=== PATIENT | male | born 1995 | race Caucasian/White ===

== ENCOUNTER 2019-03-02 15:20 | Emergency (ER) | payer BC ==
[2019-03-02 15:44] VITALS: BP 162/95
--- NOTE | 2019-03-02 16:31 | UC ---
Psychiatric Complaint HPI - HPI Summary HPI Summary: 23yo WM h/o schizophrenia, ADD presents with anxiety due to running out of psych meds x months. States his main psych provider OD'd many months ago and he "was in a dark place" and stopped taking his medications - zyprexa, clonidine and his ADD meds. 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 Feels fine now DENIES SI, HI, feels more stable with his gf by his side, just would like his medication refilled. - History Of Current Complaint Chief Complaint: UCGeneralIllness Stated Complaint: MHE Time Seen by Provider: 03/02/19 15:52 Hx Obtained From: Patient, Other: - GF Onset/Duration: Sudden Onset Timing: Constant Severity Initially: Moderate Severity Currently: Moderate Character: Anxious Aggravating Factor(s): Nothing Alleviating Factor(s): Nothing Associated Signs And Symptoms: Negative Related History: Positive For: Prior Psychiatric Issues - Allergies/Home Medications Allergies/Adverse Reactions: Allergies Allergy/AdvReac Type Severity Reaction Status Date / Time haloperidol [From Haldol] Allergy Severe dystonia Verified 03/02/19 15:45 Home Medications: Home Medications OLANzapine TAB* [Zyprexa 10 MG TAB*] 10 mg PO DAILY 03/02/19 [History Confirmed 03/02/19] Paliperidone ER TAB* [Invega ER*] 1.5 mg PO DAILY 03/02/19 [History Confirmed ] cloNIDine TAB* [Catapres 0.1 MG TAB*] 1 tab PO TID PRN 03/02/19 [History Confirmed 03/02/19] PMH/Surg Hx/FS Hx/Imm Hx - Surgical History Surgical History: Yes Surgery Procedure, Year, and Place: tiubes to bilateral ears - Social History Alcohol Use: None Substance Use Type: Marijuana Substance Use Comment - Amount & Last Used: daily Smoking Status (MU): Light Every Day Tobacco Smoker Household Exposure Type: Cigarettes Review of Systems All Other Systems Reviewed And Are Negative: Yes Constitutional: Positive: Negative Skin: Positive: Negative Eyes: Positive: Negative ENT: Positive: Negative Respiratory: Positive: Negative Cardiovascular: Positive: Negative Gastrointestinal: Positive: Negative Genitourinary: Positive: Negative Motor: Positive: Negative Neurovascular: Positive: Negative Musculoskeletal: Positive: Negative Psychological: Positive: Anxious Physical Exam - Summary Physical Exam Summary: Vital Signs Reviewed: Yes Eye Exam: Normal Eyes: Positive: Conjunctiva Clear ENT: Positive: Normal ENT inspection Neck: Positive: Supple Respiratory Exam: Normal Respiratory: Positive: Lungs clear, Normal breath sounds. Cardiovascular Exam: Normal Cardiovascular: Positive: RRR Abdomen: NT/ND Musculoskeletal Exam: Normal Neurological Exam: Normal Psychological Exam: Normal Skin Exam: Normal Triage Information Reviewed: Yes Vital Signs: Initial Vital Signs Temp 37.7 C 03/02/19 15:33 Pulse 109 03/02/19 15:33 Resp 18 03/02/19 15:33 BP 162/95 03/02/19 15:33 Pulse Ox 98 03/02/19 15:33 Vital Signs Reviewed: Yes Psychological Exam: Normal Psychological: Positive: Normal Response To Family, Age Appropriate Behavior - lucid, goal-oriented thought process, rate of speech normal, mildly anxious about wanting his medication back on board Psych Complaint Course/Dx - Course Course Of Treatment: pt denies hearing voices, denies wanting to harm himself or others, Pt states he is NOT able to deal with going to ED VIA AMBULANCE as that would "TRIGGER" him and that he will leave on his own forcefully if he has to. GF by his side and agrees to take pt to ED for further assessment and evaluation. Pt is currently anxious and would like to go to ED so that he CAN get his medications refilled. However, during the stay pt and his GF decided that they will wait for pt's father to come to to car pick up driver pt and they are all to go to ED together. While awaiting for pt's father to arrive, pt became mildly more agitated, blasting music became more anxious standing at the doorway and pacing. Pt's father came to and pt left with father and gf to ED. Nurse Freedman called ED spoke to charge nurse Donis in ER of pt's departure on their way to ED. - Differential Dx/Diagnosis Provider Diagnosis: Anxiety, Schizophrenia Discharge ED - Sign-Out/Discharge Documenting (check all that apply): Patient Departure All imaging exams completed and their final reports reviewed: No Studies - Discharge Plan Condition: Stable Disposition: HOME Patient Education Materials: Schizophrenia (ED), Anxiety (ED) Referrals: No Primary Care Phys,NOPCP [Primary Care Provider] - Additional Instructions: PLEASE GO TO ED FOR MENTAL HEALTH EVALUATION AND FURTHER MANAGEMENT INCLUDING YOUR PRESCRIPTION REFILLS - Billing Disposition and Condition Condition: STABLE Disposition: Home
== END 2019-03-02 16:26 | disposition home or self-care (01) ==
LOC: UCEAST 15:20
DX: F20.9 Schizophrenia, unspecified (principal); F41.9 Anxiety disorder, unspecified; F17.210 Nicotine dependence, cigarettes, uncomplicated; Z88.8 Allergy status to other drugs, medicaments and biological substances; Z79.899 Other long term (current) drug therapy
CPT/HCPCS: 99203; G0463

== ENCOUNTER 2019-03-02 17:14 | Emergency (ER) | payer BC ==
[2019-03-02] MEDS ORDERED: cloNIDine TAB* 0.1 MG PO ONE (18:42)
--- NOTE | 2019-03-02 18:43 | ED ---
Psychiatric Complaint - HPI Summary HPI Summary: Patient with history of diagnosis of schizophrenia years ago complains of being without his psychiatric meds 6 months. Patient states his psychologist 6 months ago and he has not set of new care, but also states he felt he did not need the medications during that time. Patient does admit to recent increase in stress and emotional lability and is seeking to reestablish care. Patient had an appointment with [facility] in mental health week ago but apparently due to miscommunication patient missed appointment. Patient has another appointment with [facility] on March 14 which is 2 weeks from now. Patient hoping to get into room prescription for his psych meds between now and then. Denies SI, HI, voices, hallucinations. States only symptoms are emotional lability. Friend and father concur patient is at baseline though somewhat more emotional than usual. Medical history is allergies, schizophrenia. Patient normally takes Zyprexa 10 mg daily at night, clonidine 0.1 mg 3 times a day. Seeking attention prescription for same. - History Of Current Complaint Chief Complaint: EDPsychosocial Time Seen by Provider: 03/02/19 18:24 Hx Obtained From: Patient, Family/Human Services Program Specialist Onset/Duration: Gradual Onset, Lasting Days Timing: Intermittent Episode Lasting Severity Initially: Moderate Severity Currently: Moderate Aggravating Factor(s): Recent Stress, Medication Non-compliance, Therapy Non- compliance Alleviating Factor(s): Nothing Associated Signs And Symptoms: Positive: Negative Related History: Positive For: Prior Psychiatric Issues - Allergies/Home Medications Allergies/Adverse Reactions: Allergies Allergy/AdvReac Type Severity Reaction Status Date / Time haloperidol [From Haldol] Allergy Severe dystonia Verified 03/02/19 18:55 PMH/Surg Hx/FS Hx/Imm Hx Endocrine/Hematology History: Denies: Hx Diabetes, Hx Thyroid Disease Cardiovascular History: Denies: Hx Hypertension Respiratory History: Reports: Hx Asthma Denies: Hx Chronic Obstructive Pulmonary Disease (COPD) GI History: Denies: Hx Ulcer History: Denies: Hx Dialysis Sensory History: Denies: Hx Eye Prosthesis Opthamlomology History: Denies: Hx Legally Blind EENT History: Denies: Hx Deafness Psychiatric History: Denies: Hx Autism - Surgical History Surgery Procedure, Year, and Place: tiubes to bilateral ears Infectious Disease History: No Infectious Disease History: Denies: Hx Hepatitis, Hx Human Immunodeficiency Virus (HIV), Traveled Outside the [place] in Last 30 Days - Family History Known Family History: Positive: Non-Contributory - Social History Alcohol Use: None Substance Use Type: Reports: Marijuana Substance Use Comment - Amount & Last Used: daily Smoking Status (MU): Light Every Day Tobacco Smoker Review of Systems Constitutional: Negative Eyes: Negative ENT: Negative Cardiovascular: Negative Respiratory: Negative Gastrointestinal: Negative Genitourinary: Negative Musculoskeletal: Negative Skin: Negative Neurological: Negative Positive: Anxious All Other Systems Reviewed And Are Negative: Yes Physical Exam - Summary Physical Exam Summary: Patient alert and oriented, calm, coherent and cooperative with exam. No evidence of psychosis, delirium or inappropriate behavior. Triage Information Reviewed: Yes Vital Signs On Initial Exam: Initial Vitals Temp Pulse Resp BP Pulse Ox 99.4 F 101 18 134/94 97 03/02/19 17:17 03/02/19 17:17 03/02/19 17:17 03/02/19 17:17 03/02/19 17:17 Vital Signs Reviewed: Yes Appearance: Positive: Well-Appearing Head/Face: Positive: Normal Head/Face Inspection Eyes: Positive: Normal Neck: Positive: Supple Respiratory/Lung Sounds: Positive: Clear to Auscultation Cardiovascular: Positive: Normal Abdomen Description: Positive: Nontender Musculoskeletal: Positive: Normal Neurological: Positive: Normal Psychiatric: Positive: Normal AVPU Assessment: Alert - Drasco Coma Scale Best Eye Response: 4 - Spontaneous Best Motor Response: 6 - Obeys Commands Best Verbal Response: 5 - Oriented Coma Scale Total: 15 Procedures - Sedation Patient Received Moderate/Deep Sedation with Procedure: No Diagnostics - Vital Signs Vital Signs Temp Pulse Resp BP Pulse Ox 03/02/19 17:17 99.4 F 101 18 134/94 97 - Laboratory Lab Statement: Any lab studies that have been ordered have been reviewed, and results considered in the medical decision making process. Course/Dx - Course Course Of Treatment: Patient with history of diagnosis of schizophrenia years ago complains of being without his psychiatric meds 6 months. Patient states his psychologist 6 months ago and he has not set of new care, but also states he felt he did not need the medications during that time. Patient does admit to recent increase in stress and emotional lability and is seeking to reestablish care. Patient had an appointment with [facility] in mental health week ago but apparently due to miscommunication patient missed appointment. Patient has another appointment with [facility] on March 14 which is 2 weeks from now. Patient hoping to get into room prescription for his psych meds between now and then. Denies SI, HI, voices, hallucinations. States only symptoms are emotional lability. Friend and father concur patient is at baseline though somewhat more emotional than usual. Medical history is allergies, schizophrenia. Patient normally takes Zyprexa 10 mg daily at night, clonidine 0.1 mg 3 times a day. Seeking attention prescription for same. Vital signs within normal limits. Rx for Zyprexa 10 mg, clonidine 0.1 mg 3 times a day 5 days. - Differential Dx/Clinical Impression Provider Diagnosis: Medication refill Discharge ED - Sign-Out/Discharge Documenting (check all that apply): Patient Departure - Discharge Plan Condition: Stable Disposition: HOME Prescriptions: cloNIDine TAB* [Catapres 0.1 MG TAB*] 0.1 mg PO TID 5 Days #15 tab OLANzapine TAB* [Zyprexa 10 MG TAB*] 10 mg PO BEDTIME 5 Days #5 tab Patient Education Materials: Medicine Refill (ED) Referrals: No Primary Care Phys,NOPCP [Primary Care Provider] - Additional Instructions: Follow-up with your appointment on Mar 14 with [facility]. Return to the ED for any new or worsening symptoms. - Billing Disposition and Condition Condition: STABLE Disposition: Home - Attestation Statements Provider Attestation: I was available for consult. This patient was seen by the JAY. The patient was not presented to, seen by, or examined by me. Ankur Cadena MD
[2019-03-02 18:59] VITALS: BP 130/89
== END 2019-03-02 18:53 | disposition home or self-care (01) ==
LOC: ED 17:14
DX: F20.9 Schizophrenia, unspecified (principal); Z76.0 Encounter for issue of repeat prescription; Z88.8 Allergy status to other drugs, medicaments and biological substances; F17.200 Nicotine dependence, unspecified, uncomplicated
CPT/HCPCS: 99282; A9270-GY

== ENCOUNTER 2019-05-07 10:16 | Emergency (ER) | payer SELFPAY ==
[2019-05-07 12:00] VITALS: BP 137/89
--- NOTE | 2019-05-07 12:00 | ED ---
Psychiatric Complaint - HPI Summary HPI Summary: Patient is a 23 y/o M w/ Hx of schizophrenia who presents to [facility] for prescription refill. He states that he is on Zyprexa, 10 mg, once daily. He notes that he is followed by a mental health facility in [place]. However, patient reports that he is in the process of getting "re-evaluated" and has not been able to see a medical provider. 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 He denies any PMHx of HTH, HLD, and diabetes and reports no PSHx. Patient smokes tobacco daily, rarely uses alcohol, and reports some marijuana usage. FMHx of HTN noted. Home medications and allergies are reviewed. - History Of Current Complaint Chief Complaint: EDMedicationRefill Time Seen by Provider: 05/07/19 11:52 Hx Obtained From: Patient Onset/Duration: Still Present Timing: Constant Severity Currently: None Aggravating Factor(s): Nothing Alleviating Factor(s): Nothing Associated Signs And Symptoms: Positive: Negative Has Suicidal: Denies: Thoughts Has Homicidal: Denies: Thoughts - Allergies/Home Medications Allergies/Adverse Reactions: Allergies Allergy/AdvReac Type Severity Reaction Status Date / Time haloperidol [From Haldol] Allergy Severe dystonia Verified 03/02/19 18:55 PMH/Surg Hx/FS Hx/Imm Hx Endocrine/Hematology History: Denies: Hx Diabetes, Hx Thyroid Disease Cardiovascular History: Denies: Hx Hypertension Respiratory History: Reports: Hx Asthma Denies: Hx Chronic Obstructive Pulmonary Disease (COPD) GI History: Denies: Hx Ulcer History: Denies: Hx Dialysis Sensory History: Denies: Hx Eye Prosthesis, Hx Legally Blind, Hx Deafness Opthamlomology History: Denies: Hx Eye Prosthesis, Hx Legally Blind Psychiatric History: Denies: Hx Autism - Surgical History Surgery Procedure, Year, and Place: tiubes to bilateral ears Infectious Disease History: No Infectious Disease History: Denies: Hx Hepatitis, Hx Human Immunodeficiency Virus (HIV), Traveled Outside the [place] in Last 30 Days - Family History Known Family History: Negative: Hypertension - Social History Alcohol Use: Rare Substance Use Type: Reports: Marijuana Substance Use Comment - Amount & Last Used: daily Smoking Status (MU): Light Every Day Tobacco Smoker Review of Systems Constitutional: Other - presents for prescription refill Negative: Fever - on vitals, temp is 97.9 F Psychological: Other - negative - SI and HI All Other Systems Reviewed And Are Negative: Yes Physical Exam - Summary Physical Exam Summary: VITAL SIGNS: Reviewed. GENERAL: Patient is a well-developed and nourished male who is lying comfortable in the stretcher. Patient is not in any acute respiratory distress. HEAD AND FACE: No signs of trauma. No ecchymosis, hematomas or skull depressions. No sinus tenderness. EYES: PERRLA, EOMI x 2, No injected conjunctiva, no nystagmus. EARS: Hearing grossly intact. Ear canals and tympanic membranes are within normal limits. MOUTH: Oropharynx within normal limits. NECK: Supple, trachea is midline, no adenopathy, no JVD, no carotid bruit, no c- spine tenderness, neck with full ROM. CHEST: Symmetric, no tenderness at palpation. LUNGS: Clear to auscultation bilaterally. No wheezing or crackles. CVS: Regular rate and rhythm, S1 and S2 present, no murmurs or gallops appreciated. ABDOMEN: Soft, non-tender. No signs of distention. No rebound, no guarding, and no masses palpated. Bowel sounds are normal. EXTREMITIES: FROM in all major joints, no edema, no cyanosis or clubbing. NEURO: Alert and oriented x 3. No acute neurological deficits. Speech is normal and follows commands. SKIN: Dry and warm. Triage Information Reviewed: Yes Vital Signs On Initial Exam: Initial Vitals Temp Pulse Resp BP Pulse Ox 97.9 F 95 16 143/92 97 05/07/19 10:24 05/07/19 10:24 05/07/19 10:24 05/07/19 10:24 05/07/19 10:24 Vital Signs Reviewed: Yes Procedures - Sedation Patient Received Moderate/Deep Sedation with Procedure: No Diagnostics - Vital Signs Vital Signs Temp Pulse Resp BP Pulse Ox 05/07/19 10:24 97.9 F 95 16 143/92 97 - Laboratory Lab Statement: Any lab studies that have been ordered have been reviewed, and results considered in the medical decision making process. Course/Dx - Course Assessment/Plan: Patient is a 23 y/o M w/ Hx of schizophrenia who presents to [facility] for prescription refill. He states that he is on Zyprexa, 10 mg, once daily. He notes that he is followed by a mental health facility in [place]. However, patient reports that he is in the process of getting "re-evaluated" and has not been able to see a medical provider. 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 He denies any PMHx of HTH, HLD, and diabetes and reports no PSHx. Patient smokes tobacco daily, rarely uses alcohol, and reports some marijuana usage. FMHx of HTN noted. Home medications and allergies are reviewed. Patient was given a prescription for Zyprexa 10 mg once a day for 5 days. Patient was recommended to follow up with her psychiatrist in order to get his appropriate medications. The patient understands and agrees. Patient is hemodynamically stable alert oriented 3. - Differential Dx/Clinical Impression Provider Diagnosis: Medicine refill Discharge ED - Sign-Out/Discharge Documenting (check all that apply): Patient Departure - discharge - Discharge Plan Condition: Stable Disposition: HOME Prescriptions: OLANzapine TAB* [Zyprexa 10 MG TAB*] 10 mg PO BEDTIME 5 Days #5 tab Patient Education Materials: Schizophrenia (ED) Referrals: [facility] [Outside] - 3 Days Additional Instructions: PLEASE RETURN TO ED FOR ANY NEW OR WORSENING SYMPTOMS. PLEASE FOLLOW UP WITH YOUR PRIMARY CARE PHYSICIAN WITHIN 1-3 DAYS. - Billing Disposition and Condition Condition: STABLE Disposition: Home - Attestation Statements Document Initiated by Zeferino: Yes Documenting Scribe: ALMAZ DE ANDA Provider For Whom Zeferino is Documenting (Include Credential): DEON MOLINA MD Scribe Attestation: ALMAZ Fan, scribed for DEON MOLINA MD on 05/08/19 at 1049. Scribe Documentation Reviewed: Yes Provider Attestation: The documentation as recorded by the ALMAZ saldivar accurately reflects the service I personally performed and the decisions made by me, DEON MOLINA MD Status of Scribe Document: Viewed
== END 2019-05-07 11:58 | disposition home or self-care (01) ==
LOC: ED 10:16
DX: F20.9 Schizophrenia, unspecified (principal); Z79.899 Other long term (current) drug therapy; E78.5 Hyperlipidemia, unspecified; E11.9 Type 2 diabetes mellitus without complications; Z88.8 Allergy status to other drugs, medicaments and biological substances; J45.909 Unspecified asthma, uncomplicated; F17.200 Nicotine dependence, unspecified, uncomplicated
CPT/HCPCS: 99282